=== PATIENT | male | born 1965 | race Caucasian/White ===

== ENCOUNTER 2016-04-22 04:56 | Emergency (ER) | payer OTHER ==
[~2016-04-22] VITALS: Ht 165.1 cm; Wt 84.0 kg
[~2016-04-22 04:56] MED LIST: HYDR-3129 PO; blood pressure PO
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
[2016-04-22 05:10] VITALS: BP 125/76; PULSE 99; RESP 14; TEMP 98.2; O2SAT 99
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
[2016-04-22] MEDS ORDERED: ACETAMINOPHEN 325 MG TAB PO ONE (07:00)
== END 2016-04-22 07:00 ==
LOC: NEPB 04:56
DX: S03.2XXA Dislocation of tooth, initial encounter (principal); S00.81XA Abrasion of other part of head, initial encounter; R51 Headache; K02.9 Dental caries, unspecified; I10 Essential (primary) hypertension; F17.200 Nicotine dependence, unspecified, uncomplicated; Z86.79 Personal history of other diseases of the circulatory system; Y04.2XXA Assault by strike against or bumped into by another person, initial encounter
CPT/HCPCS: 70450; 70486